=== PATIENT | female | born 1970 | race Caucasian/White ===

== ENCOUNTER 2023-05-14 15:01 | Outpatient (CLI) | payer OTHER, SELFPAY ==
--- NOTE | ~2023-05-14 | US_ITS ---
EXAMINATION: US carotid duplex BI DATE: 05/14/2023 15:26 INDICATION: vertigo and dizziness TECHNIQUE: Grayscale, color Doppler, and pulsed Doppler images of the cervical carotid arteries were obtained. The degree of vessel stenosis is placed in one of the following categories: normal, <50%, 5 0-69%, >=70% but less than near-occlusion, near-occlusion, or total occlusion. Note that percent sten osis relative to normal distal artery lumen diameter is indirectly measured from velocity measurement s as described by Garcia, et al. Radiology 2003; [id number]:[id number]. COMPARISON: None. FINDINGS: RIGHT: The right common carotid artery (CCA) peak systolic velocity (PSV) is 96 cm/s. The right internal car otid artery (ICA) PSV is 81 cm/s. The right ICA end-diastolic velocity (EDV) is 29 cm/s. The right IC A/CCA PSV ratio is 1.4. Grayscale and color Doppler images yield an estimate of <50% diameter reducti on from plaque in the ICA. The external carotid artery (ECA) PSV is 94 cm/s. There is antegrade flow in the right vertebral artery. LEFT: The left CCA PSV is 80 cm/s. The left ICA PSV is 84 cm/s. The left ICA EDV is 23 cm/s. The left ICA/C CA PSV ratio is 1.1. Grayscale and color Doppler images yield an estimate of <50% diameter reduction from plaque in the ICA. The ECA PSV is 90 cm/s. There is antegrade flow in the left vertebral artery. IMPRESSION: 1. <50% stenosis in the right internal carotid artery. 2. <50% stenosis in the left internal carotid artery. Reviewed, dictated and finalized at location B. PIT HELPER
--- NOTE | ~2023-05-14 | MR_ITS ---
EXAMINATION: MR brain/brain stem wo con DATE: 05/14/2023 15:57 INDICATION: Dizziness. TECHNIQUE: Magnetic resonance imaging (MRI) of the brain and brainstem was performed without intraven ous contrast. COMPARISON: None. FINDINGS: There is no intracranial hemorrhage, acute infarction, or abnormal intracranial mass lesion . There is a focus of increased T2-weighted signal intensity in the left frontal lobe periventricular white matter, which is normal as an isolated finding. There is no intracranial hemorrhage, acute inf arction, or abnormal intracranial mass lesion. The ventricles are normal in size. The orbits are norm al. The paranasal sinuses are clear. The mastoid air cells are normal. IMPRESSION: 1. Normal brain. Reviewed, dictated and finalized at location A. MOTIVE DISMANTLER IMPRESSION: 1. Normal brain.
== END 2023-05-14 15:02 ==
LOC: MICIMG 15:04
PROVIDERS: PCP Family Medicine; Visit Provider Physician Assistant
DX: R42 Dizziness and giddiness (principal); I65.23 Occlusion and stenosis of bilateral carotid arteries
CPT/HCPCS: 70551; 93880

== ENCOUNTER 2023-08-13 12:29 | Outpatient (CLI) | payer OTHER, SELFPAY ==
--- NOTE | ~2023-08-13 | XR_ITS ---
EXAMINATION: [id number] DATE: 08/13/2023 12:44 INDICATION: Neck pain. TECHNIQUE: 3 views of cervical spine were obtained. COMPARISON: None. FINDINGS: There is mild kyphosis of cervical spine. Vertebral body heights are normal. There is mildl y decreased disc height at C4-C5 and C5-C6. There is multilevel facet joint osteoarthritis, moderate at C7-T1. No central canal stenosis or prevertebral soft tissue swelling. IMPRESSION: 1. Mild cervical spondylosis. Reviewed, dictated and finalized at location A.
== END 2023-08-13 12:30 ==
LOC: MICIMG 12:32
PROVIDERS: PCP Physician Assistant; Visit Provider Physician Assistant
DX: M43.02 Spondylolysis, cervical region (principal)
CPT/HCPCS: 72040